=== PATIENT | male | born 1970 | race Caucasian/White ===

== ENCOUNTER 2016-08-31 13:00 | Emergency (ER) | payer OTHER ==
[~2016-08-31] VITALS: Ht 180.3 cm; Wt 83.9 kg
[2016-08-31] MEDS ORDERED: SYNT75TA PO (13:06)
[2016-08-31] MEDS ORDERED: KETOROLAC 60 MG/2 ML VIAL (J1885) IM ONE (14:30)
--- NOTE | 2016-08-31 15:23 | REP ---
DUPLEX EXTREMITY VENOUS ULTRASOUND: RIGHT LOWER EXTREMITY HISTORY: Calf pain. Question muscle tear. Possible thrombus. FINDINGS: The deep veins are anechoic and fully compressible from the groin to the popliteal fossa in the right lower extremity. Color flow imaging is homogeneous. Spectral Doppler interrogation demonstrates intact respiratory variation in flow and normal manual augmentation of flow. There is no evidence of deep vein thrombosis. IMPRESSION: Negative right lower extremity duplex venous ultrasound. No evidence of deep vein thrombosis. Signed by Fredy Murray MD 08/31/2016 03:36 P
[2016-08-31] MEDS ORDERED: MOBI4TAB PO (15:53)
[2016-08-31] MEDS ORDERED: ZANA4TAB PO (15:53)
[2016-08-31] MEDS ORDERED: PERC5TAB12 PO (15:53)
[2016-08-31 16:05] VITALS: BP 122/71
== END 2016-08-31 16:15 | disposition home or self-care (01) ==
LOC: M ED 13:00
DX: S76.311A Strain of muscle, fascia and tendon of the posterior muscle group at thigh level, right thigh, initial encounter (principal); M79.604 Pain in right leg; X50.0XXA Overexertion from strenuous movement or load, initial encounter; Y92.009 Unspecified place in unspecified non-institutional (private) residence as the place of occurrence of the external cause; Y93.B9 Activity, other involving muscle strengthening exercises; Y99.8 Other external cause status; Z79.899 Other long term (current) drug therapy; Z85.819 Personal history of malignant neoplasm of unspecified site of lip, oral cavity, and pharynx
CPT/HCPCS: 93971; 96372; 99283; J1885

== ENCOUNTER → 2018-11-13 | Outpatient (CLI) | payer OTHER ==
[~2018-11-13] MED LIST: ISOVUE-370 76% 100ML VIAL (Q9967) As Ordered ONE; MOBI4TAB PO; PERC5TAB12 PO; SYNT75TA PO; ZANA4TAB PO
--- NOTE | 2018-11-14 08:48 | REP ---
CT of the soft tissue neck with contrast Indication: Tonsillar cancer. Comparison: CT neck of 03/03/2014. PET/CT of 10/08/2014. Technique: Axial CT of the soft tissue neck was performed following the uneventful intravenous administration of 75 ml of Isovue 370. Coronal and sagittal soft tissue reformatted images were provided. Findings: There is no cervical lymphadenopathy. Within the remainder of the neck, there is streak artifact related to dental amalgam. Within this limitation, the nasopharynx, oropharynx, visible oral cavity, hypopharynx and larynx are within normal limits. The thyroid gland and parotid glands are unremarkable. Normal submandibular glands are not seen, questionably representing glandular atrophy or resection. No neck mass is identified. The imaged portion of the brain parenchyma is unremarkable. The upper airway is patent. The lung apices are clear. There is mild cervical spondylosis at C3-C4. The visualized paranasal sinuses and mastoid air cells are clear. Impression: No evidence of residual or recurrent disease. Electronically Signed by Carmita Atkinson MD 11/14/2018 08:39 A
== END ==
LOC: M RAD 16:29
PROVIDERS: ATTEND Physician Assistant Medical
DX: C09.9 Malignant neoplasm of tonsil, unspecified (principal)